=== PATIENT | female | born 1955 | race Caucasian/White ===

== ENCOUNTER 2022-10-14 14:15 | Emergency (ER) | payer MEDICARE, OTHER, SELFPAY ==
--- NOTE | ~2022-10-14 | XR_ITS ---
EXAMINATION: XR CHEST CLINICAL INFORMATION: Chest pain COMPARISON: None available. TECHNIQUE: 2 views of the chest were obtained. FINDINGS: Right basilar opacity may represent atelectasis, infiltrate or possibly a undulating hemidiaphragm. Left lung is grossly clear. The mid-upper lung zones are felt to be grossly clear. The cardiac silhouette is within normal limits. There is no effusion. XR/XR chest 2V IMPRESSION: Right basilar opacity may represent atelectasis or infiltrate
--- NOTE | 2022-10-14 14:18 | ECG_ITS ---
Test Reason : CHEST PRESSURE Blood Pressure : / mmHG Vent. Rate : 084 BPM Atrial Rate : 084 BPM P-R Int : 146 ms QRS Dur : 088 ms QT Int : 382 ms P-R-T Axes : 038 -10 061 degrees QTc Int : 451 ms Normal sinus rhythm Minimal voltage criteria for LVH, may be normal variant ( R in aVL ) Cannot rule out Inferior infarct , age undetermined Cannot rule out Anterior infarct , age undetermined Abnormal ECG No previous ECGs available Referred By: Generic ED Physician Electronically Signed By:LULU WHITAKER
--- NOTE | 2022-10-14 14:37 | ED.CHESTPAIN ---
HPI - Chest Pain General Chief Complaint: Chest Pain Stated Complaint: chest pressure upper back and jaw pain Time Seen by Provider: 10/14/22 17:05 Source: patient Mode of arrival: ambulatory Limitations: no limitations History of Present Illness HPI narrative: Patient obese with history of hypertension and fatty liver no known coronary artery disease was sitting at a computer at 14:00 and notice severe heaviness and pain which lasted for about 15-20 minutes radiating to the jaw and the back patient never had similar pain in the past had a stress test and years ago which was negative patient did not have any shortness of breath or cough or palpitation again patient had 3 more times similar chest pain but less severe no diaphoresis patient does not take any aspirin Related Data Previous Rx's Medication Instructions Recorded aspirin 81 mg chewable tablet 81 mg PO DAILY #90 tabs 10/14/22 Allergies Allergy/AdvReac Type Severity Reaction Status Date / Time No Known Allergies Allergy Verified 10/14/22 14:22 Review of Systems Review of Systems: Yes all other systems are reviewed and are negative [facility] Social History Social History Smoked in Last 30 Days: No Use of substances other than those prescribed or required for medical reasons: No Advance Directives: No Advance Directives Information Provided: Yes Physical Exam Vital Signs: Vital Signs: Last Vital Signs Temp 97.0 F 10/14/22 17:22 Pulse 74 10/14/22 20:29 Resp 18 10/14/22 20:29 BP 124/54 L 10/14/22 20:29 Pulse Ox 93 10/14/22 20:29 O2 Del Method Room Air 10/14/22 20:29 BMI result Body Mass Index 48.7 Appearance: Alert. Oriented X3. No acute distress. Obese Eyes: No pallor or icterus ENT: Pharynx normal. Oral Mucosa moist Neck: Normal inspection. Neck supple. CVS: Normal heart rate and rhythm. Pulses normal. Respiratory: No respiratory distress. Equal air entry bilateral, no wheezing/rales/rhonchi Abdomen: Soft and nontender. Bowel sounds are present, no mass palpable, no CVA tenderness Skin: Skin warm and dry. Normal skin color. Normal skin turgor. Extremities: No lower extremity edema. No calf tenderness Neuro: Oriented X 3. No motor deficit. Course Course Course Narrative: This is an RME: Additional HPI, ROS, PE not included below will be deferred to primary provider. Patient is a 66-year-old female hx HTN, HLD who presents to the emergency department for evaluation of Chest pain, sudden onset whole on the computer approximately 1 hour ago, lasting 10 minutes as severe and then improved, currently is a mild discomfort. described as pressure, substernal radiating to the midline of the back, jaw. Reports history of similar symptoms 10 years ago, thought to be related to stress. Denies history of MT, DVT/PE Plan: Labs, EKG, CXR Medications Administered Discontinued Medications Generic Name Dose Route Start Last Admin Trade Name Freq PRN Reason Stop Dose Admin Aspirin 162 mg 10/14/22 17:42 10/14/22 17:54 Aspirin Enteric Coated 81 Mg Tablet.Dr GALICIA 10/14/22 17:43 162 mg ONCE ONE Administration Medical Decision Making Medical Decision Making [facility] Narrative: Patient with chest pain radiated to the jaw clinically seems like ACS but 2 sets of troponin I negative EKG without any ischemic changes will repeat 1 more time that would be 6 hours of the onset of chest pain patient was given aspirin currently chest pain-free, patient with 3 sets of high sensitive troponin negative no chest pain during stay in the ER will discharge patient home Lab Data [facility] Lab Attestation statement: I reviewed the patient's lab results. 10/14/22 14:34 10/14/22 14:34 Labs: Lab Results 10/14/22 10/14/22 10/14/22 Range/Units 14:34 14:34 14:34 WBC 8.0 (4.8-10.8) X10*3/uL RBC 4.26 (4.20-5.50) X10*6/uL Hgb 12.4 (12.0-16.0) g/dl Hct 38.6 (37.0-47.0) % MCV 90.6 (80.0-98.0) fL MCH 29.1 (27.0-33.0) pg MCHC 32.1 (31.0-35.0) g/dl RDW 13.8 (11.0-16.0) % Plt Count 204 (160-400) X10*3/uL MPV 10.9 (9.4-12.3) fL Immature Gran % (Auto) 0.2 (0.0-0.4) % Neut % (Auto) 70.0 (45-73) % Lymph % (Auto) 23.9 (20-40) % [place] % (Auto) 5.1 (2-11) % Eos % (Auto) 0.6 (0-4) % Baso % (Auto) 0.2 (0-2) % Lymph # (Auto) 1.9 (1.2-4.9) X10*3/uL [place] # (Auto) 0.4 (0.1-1.2) X10*3/uL Eos # (Auto) 0.1 (0.0-0.4) X10*3/uL Baso # (Auto) 0.0 (0.0-0.2) X10*3/uL Abs Immat Gran (auto) 0.02 (0.00-0.03) X10*3/uL Absolute Neuts (auto) 5.6 (2.0-8.3) x10*3/uL Absolute Nucleated RBC 0.000 (0.0-0.012) X10*3/uL Nucleated RBC % (auto) 0.0 (0.0-0.2) /100WBC PT 12.7 (10.0-13.1) SEC INR 1.1 (0.9-1.1) D-Dimer High Sensitivty < 150 NG/ML Sodium 142 (135-145) mmol/L Potassium 3.8 (3.3-5.1) mmol/L Chloride 106 (96-108) mmol/L Carbon Dioxide 25 (22-29) mmol/L Anion Gap 15 (12-20) BUN 25 H (9-16) mg/dL Creatinine 0.98 (0.5-1.4) mg/dL Estim Creat Clear Calc 70.8 Estimated GFR 57 Random Glucose 113 (60-115) mg/dL Calcium 9.8 (8.4-10.2) mg/dL Total Bilirubin 1.0 (0.0-1.0) mg/dL AST 53 H (5-31) U/L ALT 47 H (0-31) U/L Alkaline Phosphatase 99 (39-117) U/L Troponin I High Sens (<3.5-17.0) ng/L B-Natriuretic Peptide (<100) pg/mL Total Protein 7.2 (6.5-8.0) g/dL Albumin 4.2 (3.5-5.0) g/dL 10/14/22 10/14/22 10/14/22 Range/Units 14:34 14:34 18:22 WBC (4.8-10.8) X10*3/uL RBC (4.20-5.50) X10*6/uL Hgb (12.0-16.0) g/dl Hct (37.0-47.0) % MCV (80.0-98.0) fL MCH (27.0-33.0) pg MCHC (31.0-35.0) g/dl RDW (11.0-16.0) % Plt Count (160-400) X10*3/uL MPV (9.4-12.3) fL Immature Gran % (Auto) (0.0-0.4) % Neut % (Auto) (45-73) % Lymph % (Auto) (20-40) % [place] % (Auto) (2-11) % Eos % (Auto) (0-4) % Baso % (Auto) (0-2) % Lymph # (Auto) (1.2-4.9) X10*3/uL [place] # (Auto) (0.1-1.2) X10*3/uL Eos # (Auto) (0.0-0.4) X10*3/uL Baso # (Auto) (0.0-0.2) X10*3/uL Abs Immat Gran (auto) (0.00-0.03) X10*3/uL Absolute Neuts (auto) (2.0-8.3) x10*3/uL Absolute Nucleated RBC (0.0-0.012) X10*3/uL Nucleated RBC % (auto) (0.0-0.2) /100WBC PT (10.0-13.1) SEC INR (0.9-1.1) D-Dimer High Sensitivty NG/ML Sodium (135-145) mmol/L Potassium (3.3-5.1) mmol/L Chloride (96-108) mmol/L Carbon Dioxide (22-29) mmol/L Anion Gap (12-20) BUN (9-16) mg/dL Creatinine (0.5-1.4) mg/dL Estim Creat Clear Calc Estimated GFR Random Glucose (60-115) mg/dL Calcium (8.4-10.2) mg/dL Total Bilirubin (0.0-1.0) mg/dL AST (5-31) U/L ALT (0-31) U/L Alkaline Phosphatase (39-117) U/L Troponin I High Sens < 2.7 < 2.7 (<3.5-17.0) ng/L B-Natriuretic Peptide < 10 (<100) pg/mL Total Protein (6.5-8.0) g/dL Albumin (3.5-5.0) g/dL 10/14/22 Range/Units 20:41 WBC (4.8-10.8) X10*3/uL RBC (4.20-5.50) X10*6/uL Hgb (12.0-16.0) g/dl Hct (37.0-47.0) % MCV (80.0-98.0) fL MCH (27.0-33.0) pg MCHC (31.0-35.0) g/dl RDW (11.0-16.0) % Plt Count (160-400) X10*3/uL MPV (9.4-12.3) fL Immature Gran % (Auto) (0.0-0.4) % Neut % (Auto) (45-73) % Lymph % (Auto) (20-40) % [place] % (Auto) (2-11) % Eos % (Auto) (0-4) % Baso % (Auto) (0-2) % Lymph # (Auto) (1.2-4.9) X10*3/uL [place] # (Auto) (0.1-1.2) X10*3/uL Eos # (Auto) (0.0-0.4) X10*3/uL Baso # (Auto) (0.0-0.2) X10*3/uL Abs Immat Gran (auto) (0.00-0.03) X10*3/uL Absolute Neuts (auto) (2.0-8.3) x10*3/uL Absolute Nucleated RBC (0.0-0.012) X10*3/uL Nucleated RBC % (auto) (0.0-0.2) /100WBC PT (10.0-13.1) SEC INR (0.9-1.1) D-Dimer High Sensitivty NG/ML Sodium (135-145) mmol/L Potassium (3.3-5.1) mmol/L Chloride (96-108) mmol/L Carbon Dioxide (22-29) mmol/L Anion Gap (12-20) BUN (9-16) mg/dL Creatinine (0.5-1.4) mg/dL Estim Creat Clear Calc Estimated GFR Random Glucose (60-115) mg/dL Calcium (8.4-10.2) mg/dL Total Bilirubin (0.0-1.0) mg/dL AST (5-31) U/L ALT (0-31) U/L Alkaline Phosphatase (39-117) U/L Troponin I High Sens < 2.7 (<3.5-17.0) ng/L B-Natriuretic Peptide (<100) pg/mL Total Protein (6.5-8.0) g/dL Albumin (3.5-5.0) g/dL Independent Interpretation I performed an independent interpretation of an: EKG Interpretation: Normal sinus rhythm heart rate 84 beats per minute normal intervals LVH poor progression of R-wave in anterior leads, no acute ST-T changes no acute ischemia Discharge Plan Discharge Clinical Impression: Chest pain Patient Disposition: Home, Self-Care Instructions: Chest Pain (ED) Additional Instructions: Take baby aspirin daily At this time there is no convincing reports for acute heart damage Follow with PCP/cardiology for further management including stress test Report to ER if recurrence of pain Prescriptions: New aspirin 81 mg tablet,chewable 81 mg PO DAILY Qty: 90 0RF Referrals: Jovanny Wills MD [Physician] - 1 week
[2022-10-14 14:38] VITALS: BP 137/79; PULSE 89; RESP 16; TEMP 36.1; O2SAT 95; BMI 48.7
[2022-10-14 14:39] LABS: MANUAL DIFF FLAG NO
[2022-10-14 14:41] LABS: Basophils Percent Auto 0.2 % (0-2); Eosinophils Absolute Auto 0.1 X10*3/uL (0.0-0.4); Eosinophils Percent Auto 0.6 % (0-4); Hematocrit 38.6 % (37.0-47.0); Hemoglobin 12.4 g/dl (12.0-16.0); Imm Gran Abs Auto 0.02 X10*3/uL (0.00-0.03); Imm Gran Pct Auto 0.2 % (0.0-0.4); Lymphocytes Absolute Auto 1.9 X10*3/uL (1.2-4.9); Lymphocytes Percent Auto 23.9 % (20-40); Mean Corpuscular HGB Conc 32.1 g/dl (31.0-35.0); Mean Corpuscular Hemoglobin 29.1 pg (27.0-33.0); Mean Corpuscular Volume 90.6 fL (80.0-98.0); Mean Platelet Volume 10.9 fL (9.4-12.3); Monocytes Absolute Auto 0.4 X10*3/uL (0.1-1.2); Monocytes Percent Auto 5.1 % (2-11); Neutrophils Absolute Auto 5.6 x10*3/uL (2.0-8.3); Platelet Count 204 X10*3/uL (160-400); Red Blood Count 4.26 X10*6/uL (4.20-5.50); Red Cell Distribution Width 13.8 % (11.0-16.0)
[2022-10-14 14:45] LABS: INTERNATIONAL NORM RATIO 1.1 (0.9-1.1); Prothrombin Time 12.7 SEC (10.0-13.1)
[2022-10-14 15:01] LABS: Alanine Aminotransferase 47 U/L (0-31); Albumin Level 4.2 g/dL (3.5-5.0); Alkaline Phosphatase 99 U/L (39-117); Anion Gap 15 (12-20); Aspartate Amino Transferase 53 U/L (5-31); Blood Urea Nitrogen 25 mg/dL (9-16); Calcium 9.8 mg/dL (8.4-10.2); Carbon Dioxide 25 mmol/L (22-29); Chloride 106 mmol/L (96-108); Creatinine Clr Calc Pharmacy 70.8; Estimated Glomerular Filt Rate 57; Glucose Random 113 mg/dL (60-115); Potassium 3.8 mmol/L (3.3-5.1); Sodium 142 mmol/L (135-145); Total Protein 7.2 g/dL (6.5-8.0)
[2022-10-14 15:03] LABS: B Type Natriuretic Peptide < 10 pg/mL (<100)
[2022-10-14 15:13] LABS: Troponin-I High Sensitivity < 2.7 ng/L (<3.5-17.0)
[2022-10-14 17:22] VITALS: BP 134/72; PULSE 79; RESP 13; TEMP 36.1; O2SAT 97
[2022-10-14] MEDS: Aspirin Enteric Coated 81 MG TABLET.DR 162 MG PO (17:54)
[2022-10-14 18:55] LABS: Troponin-I High Sensitivity < 2.7 ng/L (<3.5-17.0)
[2022-10-14 19:34] LABS: D Dimer High Sensitivity < 150 NG/ML
--- NOTE | 2022-10-14 20:06 | ECG_ITS ---
Test Reason : REPEAT EKG Blood Pressure : / mmHG Vent. Rate : 079 BPM Atrial Rate : 079 BPM P-R Int : 154 ms QRS Dur : 086 ms QT Int : 396 ms P-R-T Axes : 030 -07 057 degrees QTc Int : 454 ms Normal sinus rhythm Possible Inferior infarct (cited on or before 14-OCT-2022) Abnormal ECG When compared with ECG of 14-OCT-2022 14:19, No significant change was found Referred By: Daniel Soto Electronically Signed By:LULU WHITAKER
[2022-10-14 20:29] VITALS: BP 124/54; PULSE 74; RESP 18; O2SAT 93
[2022-10-14 21:45] LABS: Troponin-I High Sensitivity < 2.7 ng/L (<3.5-17.0)
== END 2022-10-14 22:04 | disposition home or self-care (01) ==
PROVIDERS: Nurse Practitioner Family; Emergency Provider Internal Medicine; PCP Physician Assistant
DX: R07.9 Chest pain, unspecified (principal); I10 Essential (primary) hypertension; E78.5 Hyperlipidemia, unspecified
CPT/HCPCS: 36415; 71046; 80053; 83880; 84484; 85025; 85379; 85610; 93005; 99284; 99285

== ENCOUNTER 2023-01-05 19:29 | Emergency (ER) | payer MEDICARE, OTHER, SELFPAY ==
--- NOTE | ~2023-01-05 | XR_ITS ---
EXAMINATION: XR HIP, RIGHT WITH AP PELVIS CLINICAL INFORMATION: Right hip pain radiating down the leg. COMPARISON: None available. TECHNIQUE: AP and frog-leg lateral views of the right hip are submitted, together with a frontal view of the pelvis. FINDINGS: There is bony demineralization. There is marked narrowing of the right acetabular joint space, with peripheral osteophyte formation and subchondral sclerosis and cyst formation. The right femoral head is smooth. There is an intact left hip total arthroplasty. No hardware loosening seen. There is no periprosthetic fracture. The bilateral sacroiliac joints are symmetric and well-maintained. The pubic symphysis is intact. No foreign body is seen. XR/XR hip RT w PEL1V IMPRESSION: 1. There is marked osteoarthritic change of the right hip. 2. There is an intact left hip total arthroplasty, without hardware failure, loosening or periprosthetic fracture noted.
[2023-01-05 19:55] VITALS: BP 185/92; PULSE 94; RESP 16; TEMP 37.3; O2SAT 98; BMI 48.8
--- NOTE | 2023-01-05 19:57 | ED_ITS ---
HPI - General Adult General Chief complaint: Extremity Injury, Lower Stated complaint: Hip pain with radiation to feet and back Time Seen by Provider: 01/05/23 23:31 Source: patient and RN notes reviewed History of Present Illness HPI narrative: 67-year-old female with a history of depression, arthritis, presents for evaluation of right hip pain. Patient states she has had chronic pain to her right hip for over 1 year. She acknowledges that she needs to have a hip replacement. She is status post left hip replacement by [facility]. Patient states that she has been doing more activity than normal as she is caring for her sick who has been undergoing cancer treatment and just came home from the hospital. Patient states she has been ambulating more so and has been using a rolling walker with a seat. Patient states she has been standing and walking much more than normal. This has caused increased pain to the right hip. She is also reporting sharp, shooting pain that radiates down her right leg. This has since resolved. She acknowledges that her weight contributes to difficulty with ambulation. Patient states that she took a half of her 's oxycodone, which she thinks was 5 mg at approximately 12:00 p.m. today. The patient states that she took a nap after this and her symptoms have improved significantly. Patient has been able to ambulate and is actually feeling much more comfortable at this time. She denies any trauma. No recent falls. No bowel or bladder incontinence. Related Data Previous Rx's Medication Instructions Recorded aspirin 81 mg chewable tablet 81 mg PO DAILY #90 tabs 10/14/22 dexamethasone 4 mg tablet 4 mg PO BID #10 tabs 01/05/23 methocarbamol 750 mg tablet 750 mg PO TID PRN pain and spasm 01/05/23 #20 tabs Allergies Allergy/AdvReac Type Severity Reaction Status Date / Time No Known Allergies Allergy Verified 10/14/22 14:22 Review of Systems 2 Review of Systems: Constitutional: No Weight loss, No Fever, No Chills, No Night Sweats, No Fatigue, No Malaise Cardiovascular: No Chest Pain, No SOB, No Edema, No Palpitations Respiratory: No Cough, No Sputum, No Dyspnea Gastrointestinal: No Nausea, No Vomiting, No Diarrhea, No Constipation, No Abdominal pain Genitourinary: No irregular bleeding, No Dysuria, No Hematuria, No Flank Pain Musculoskeletal: + joint pain, No Myalgias, No Joint Swelling Skin: No Skin Lesions, No rash Neuro: No Weakness, No Numbness, + Paresthesias, No Loss of Consciousness, No Dizziness, No Headache PMF Past Medical History Attestation statement: The following information was validated with the patient. Source: old records reviewed Social History Social History Advance Directives: No Advance Directives Information Provided: No Physical Exam ED Vital Signs: Vital Signs - 24 hr 01/05/23 19:55 Temperature 99.1 F Pulse Rate 94 Respiratory Rate 16 Blood Pressure 185/92 H Pulse Oximetry 98 Oxygen Delivery Method Room Air BMI result Body Mass Index 48.8 Const General: cooperative Nutritional Appearance: overweight Orientation/consciousness: patient oriented x3 Eyes Pupils: Equal, round and reactive pupils present Resp Effort & Inspection: normal respiratory effort Auscultation: clear to auscultation bilaterally Cardio Rate: regular rate Rhythm: regular rhythm Back/Spine/Pelvis Other: There is no spinous, paraspinous or paravertebral tenderness. There is no lumbar muscle tenderness. Patient has decreased range of motion in her lower extremities, baseline as confirmed by the patient due to body habitus. There is positive right sciatic notch tenderness. No ecchymosis noted. No calf tenderness or pedal edema. DP pulses are +1 equal bilaterally. Dorsiflexion and plantar flexion are intact bilaterally in the lower extremities. Neuro General: patient oriented x3 Cranial nerves: Yes Equal, round and reactive pupils present Course Course Course Narrative: This is a rapid medical exam: Additional HPI, ROS, PE not included below will be deferred to primary provider. Patient is a 67-year-old female presenting to the emergency department with complaint of right hip pain for the past year. States pain woke her from sleep last night. History of left hip replacement. 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 Pain increases with ambulation, going up and down stairs. Difficulty finding position of comfort. States pain was radiating from right groin all the way down her right leg to her foot. Used ice without relief. Took half of 's 10mg oxycodone at noon which relieved pain. Plan: x-ray Medical Decision Making Medical Decision Making MDM Narrative: 67-year-old female with acute on chronic right hip pain likely due to osteoarthritis as well as sciatica at today's visit. No evidence of any trauma. No evidence of infection. X-ray does not reveal any acute fracture. Patient is able to ambulate and bear weight with her walker. Trial of Decadron and Robaxin with 1st dose given now. Patient would like to be discharged home and follow-up with her orthopedist. Prescription monitoring program reviewed, no opiate use. In fact, the patient is declining any narcotic medication. Patient feels comfortable with discharge plan home. No further questions at this time. Differential Diagnosis Differential Diagnoses: The differential diagnosis associated with the presentation includes Radiology Impression Discussion of test interpretation with radiology: I have reviewed the radiologist's reading. Radiologist Impression: BETH Friedman - Chart Viewer ? Chart Viewer Orders Diagnostics Subcategory All Activity ??:?? All Time ??:?? All Subcategories Filter Laboratory Imaging Microbiology Pathology Blood Bank Tests Cardiovascular Other Specialty DATE TYPE STATUS REF RANGE/AUTHOR Hx Today 20:15 Hip/Pelvis X-Ray Signed Seymour Luis 10/14/22 15:26 Chest X-Ray Signed Nader Lares Bernadine ED 67, F?1955 MRN#? [id number] [facility],?Emergency Department??ED Bed 14?-ED14? 5ft 2in 121kg BMI: 48.8kg/m? Extremity Injury, Lower Acc#? [id number] Resus Status Not Ordered No Hx Avail Allergies No Known Allergies Problems No Data to Display Home Meds Not Confirmed Prescription Monitoring Program MEDICATIONS (INSTRUCTIONS) LAST TAKEN Active ??aspirin ??81 mgPODAILY#90 tabs Triage Note Pt presents to triage - pt stated she woke up in pain last night with R hip. Pt c/o R hip pain for 1 year. Pt states she never follow up regarding the pain. Pt states she is unable to weight bear. Shooting pain down her leg. Pt took oxycodone 12pm- helped alleviated the pain ED EMS Hand-Off No Data to Display Orders Sn[facility] XR hip RT w PEL1V Stat Completed My Widget No Data to Display Lab Results Last 24 Hrs Most Recent No Data to Display Diagnostic Imaging Reports Hip/Pelvis X-Ray Signed Today Diagnostic Departmental Reports No Data to Display Vitals - Initial & Most Recent CURRENT Today 19:55 BP 185/92 H Pulse 94 Resp 16 Temp 99.1 F O2 Sat 98 O2 Delivery Room Air Diagnostics Reports Genoveva Friedman??67??F??1955 ? Allergy/Adv: No Known Allergies Close Hip and Pelvis X-Ray (Signed) Seymour Luis - 01/05/23 Chest X-Ray (Signed) Nader Lares - 10/14/22 Launch?Image [address] [address] XRay Report Signed Patient: Genoveva Friedman MR#: [id number] : 1955 Acct:[id number] Age/Sex: 67 / F ADM Date: 01/05/23 Loc: HO.ED Attending Dr: Ordering Physician: Gerri Johnson NP Date of Service: 01/05/23 Procedure(s): XR hip RT w PEL1V Accession Number(s): [id number] cc: Hui James; Gerri Johnson NP~ EXAMINATION: XR HIP, RIGHT WITH AP PELVIS CLINICAL INFORMATION: Right hip pain radiating down the leg. COMPARISON: None available. TECHNIQUE: AP and frog-leg lateral views of the right hip are submitted, together with a frontal view of the pelvis. FINDINGS: There is bony demineralization. There is marked narrowing of the right acetabular joint space, with peripheral osteophyte formation and subchondral sclerosis and cyst formation. The right femoral head is smooth. There is an intact left hip total arthroplasty. No hardware loosening seen. There is no periprosthetic fracture. The bilateral sacroiliac joints are symmetric and well-maintained. The pubic symphysis is intact. No foreign body is seen. XR/XR hip RT w PEL1V IMPRESSION: 1. There is marked osteoarthritic change of the right hip. 2. There is an intact left hip total arthroplasty, without hardware failure, loosening or periprosthetic fracture noted. Dictated By: Seymour Luis MD Signed By: <Electronically signed by Seymour Luis MD in OV> 01/05/232040 DD/ 14 TD/TT: Short Order Fry Cook: [facility] Discharge Plan Discharge Clinical Impression: Sciatica of right side OA (osteoarthritis) of hip Qualifiers: Osteoarthritis type: unspecified Laterality: right Qualified Code(s): M16.11 - Unilateral primary osteoarthritis, right hip Patient Disposition: Home, Self-Care Instructions: Osteoarthritis (ED), Sciatica (ED) Additional Instructions: Rest. Avoid strenuous activity. Weightbear as tolerated. Continue to use your walker. Decadron as directed. This is a steroid that will help with pain and inflammation. Methocarbamol as directed. This will help with the pain and any muscle spasm. It may cause drowsiness. Do not drive or operate heavy machinery while taking this medication or drinking any alcohol. Follow-up with your orthopedist at [facility]. Follow-up with your primary care provider Return to the emergency department if symptoms worsen do not improve or if you have any other concerns. Prescriptions: New dexamethasone 4 mg tablet 4 mg PO BID Qty: 10 0RF methocarbamol 750 mg tablet 750 mg PO TID PRN (Reason: pain and spasm) Qty: 20 0RF No Action aspirin 81 mg tablet,chewable 81 mg PO DAILY Qty: 90 0RF
[2023-01-06] MEDS: dexAMETHasone 4 MG TABLET 8 MG PO (00:01)
[2023-01-06] MEDS: methocarbamoL 750 MG TABLET PO (00:01)
[2023-01-06 00:06] VITALS: BP 170/81; PULSE 88; RESP 19; TEMP 36.7; O2SAT 97
--- NOTE | 2023-01-06 00:06 | MHC.EDTECH ---
RN made aware of elevated BP of 170/81
== END 2023-01-06 00:09 | disposition home or self-care (01) ==
PROVIDERS: Emergency Provider Emergency Medicine Emergency Medical Services; PCP Physician Assistant
DX: M54.31 Sciatica, right side (principal); M16.11 Unilateral primary osteoarthritis, right hip; E66.9 Obesity, unspecified; Z68.42 Body mass index [BMI] 45.0-49.9, adult; Z79.82 Long term (current) use of aspirin; Z79.899 Other long term (current) drug therapy
CPT/HCPCS: 73502; 99282; 99283; J8540

== ENCOUNTER 2024-05-19 12:33 | Emergency (ER) | payer MEDICARE, OTHER, SELFPAY ==
--- NOTE | ~2024-05-19 | XR_ITS ---
EXAMINATION: XR CHEST 2 VIEWS HISTORY: SOB COMPARISON: Comparison is made with the prior examination dated 10/14/2022. FINDINGS: PA and lateral views of the chest are submitted. The lungs are expanded and clear. There is no pleural effusion, pneumothorax, or pulmonary vascular congestion. The heart is enlarged. The bones are intact. XR/XR chest 2V IMPRESSION: Cardiomegaly. The lungs are clear. Electronically signed by: Surinder Robles MD 05/19/2024 02:46 PM EST
[2024-05-19 13:09] VITALS: BP 173/83; PULSE 85; RESP 18; TEMP 37.1; O2SAT 96; BMI 55.3
--- NOTE | 2024-05-19 13:12 | ED.GENADULT ---
HPI - General Adult General Chief complaint: General Medical Stated complaint: legs swollen wheezing diff breathing Time Seen by Provider: 05/19/24 17:50 Source: patient Limitations: no limitations History of Present Illness ED Provider: Joelle Santos PA-C HPI narrative: 68-year-old morbidly obese female with a history of hypertension, COPD, ongoing tobacco use presents with multiple complaints. Patient states she has had ongoing bilateral lower extremity edema for months. Her doctor placed her on a trial of Lasix over the past month, she has not noted any improvement. In addition, the patient states she has had increased shortness of breath and wheezing over the past month. Denies concurrent cough and cold symptoms, fever, unintentional weight gain, chest pain. She denies unilateral calf pain or swelling, no redness of the lower extremities. Related Data Previous Rx's ?Medication ?Instructions ?Recorded aspirin 81 mg chewable tablet 81 mg PO DAILY #90 tabs 10/14/22 dexamethasone 4 mg tablet 4 mg PO BID #10 tabs 01/05/23 methocarbamol 750 mg tablet 750 mg PO TID PRN pain and spasm 01/05/23 #20 tabs Allergies Allergy/AdvReac Type Severity Reaction Status Date / Time No Known Allergies Allergy Verified 05/19/24 13:13 Review of Systems Review of Systems: Yes all other systems are reviewed and are negative Constitutional: Constitutional: Denies fatigue and Denies fever(s) Cardiovascular: Cardiovascular: Denies chest pain, Reports leg edema and Reports dyspnea Respiratory: Respiratory: Denies chest congestion, Denies cough, Reports dyspnea and Reports wheezing Endocrine: Endocrine: Denies fatigue Allergic/Immunologic: Allergic/Immunologic: Reports wheezing PMFSH Past Medical History Attestation statement: The following information was validated with the patient. Social History Social History Smoked in Last 30 Days: Yes Use of substances other than those prescribed or required for medical reasons: No Advance Directives: No Advance Directives Information Provided: No Physical Exam ED Vital Signs: Vital Signs - 24 hr 05/19/24 13:09 05/19/24 17:29 Temperature 98.8 F 97.6 F Pulse Rate 85 88 Respiratory Rate 18 16 Blood Pressure 173/83 H 168/81 H Pulse Oximetry 96 96 Oxygen Delivery Method Room Air Room Air BMI result Body Mass Index 55.3 Const Other: Alert well-appearing Orientation/consciousness: patient oriented x3 Resp Other: Nonlabored respirations, lungs clear to auscultation no wheezing Cardio Other: Normal peripheral perfusion, bilateral pitting edema noted Skin Other: Warm dry no rash Neuro General: patient oriented x3, gait normal, no focal motor deficits and CN's II-XI intact bilaterally Extrem Other: Both lower extremities are equally edematous, there was no overlying erythema, the skin is somewhat thickened and dry, consistent with likely early venous insufficiency Psych Other: Cooperative Course Course Course Narrative: RME performed by Indigo Nunes PA-C. Patient is a 68 year old assigned female at presenting to the emergency department with swelling and shortness of breath. Patient states that she was switched from HCTZ to Lasix and has been having excessive swelling, shortness of breath, and weight gain. Detailed physical exam and review of systems are deferred to the physician assistant primary care. EKG, labs, imaging, and swabs ordered. Patient placed back in the waiting room pending room availability and results. Medical Decision Making Medical Decision Making [facility] Narrative: 68-year-old morbidly obese female with a history of hypertension, COPD, ongoing tobacco use presents with multiple complaints. Patient states she has had ongoing bilateral lower extremity edema for months. Her doctor placed her on a trial of Lasix over the past month, she has not noted any improvement. In addition, the patient states she has had increased shortness of breath and wheezing over the past month. Denies concurrent cough and cold symptoms, fever, unintentional weight gain, chest pain. She denies unilateral calf pain or swelling, no redness of the lower extremities. Problem: Age, obesity, hypertension, COPD History: Per patient I have considered the following differential diagnoses: Viral syndrome, COPD exacerbation, dependent edema, heart failure, liver dysfunction, renal dysfunction, DVT, cellulitis, venous insufficiency/lymphedema Plan: In regard to the patient's ongoing lower extremity swelling, this is chronic. She has evidence of early venous insufficiency. The swelling is equal, I have no suspicion for DVT, this has been going on for months. We will send with the care instructions etc.. In regard to her increasing shortness of breath, she has silver reasons as to why this could be occurring. She is not an active COPD exacerbation. She is also not an active heart failure, she is not overtly hypertensive, she is not hypoxic, her chest x-ray is clear her BNP is 35, trop negative. Thought about underlying renal and liver dysfunction that could be contributing to her edema, however creatinine normal liver function grossly normal. The patient may have progression of her COPD, she still smokes, I will advise her she requires pulmonary function testing. She may be developing new heart failure, again, given she is not in acute exacerbation, she can have further assessment as an outpatient, I explained to her that she will likely require an ECHO. Patient verbalizes understanding is in agreement with the plan. Independently reviewed the following tests: Labs: Leukocytosis, not anemic, no electrolyte abnormality, troponin 2.8, BNP 35, EKG: Normal sinus, rate 86, no ischemic changes no ectopy QTC 437 Chest x-ray:COMPARISON: Comparison is made with the prior examination dated 10/14/2022. FINDINGS: PA and lateral views of the chest are submitted. The lungs are expanded and clear. There is no pleural effusion, pneumothorax, or pulmonary vascular congestion. The heart is enlarged. The bones are intact. XR/XR chest 2V IMPRESSION: Cardiomegaly. The lungs are clear. Electronically signed by: Surinder Robels MD 05/19/2024 02:46 PM [facility] [place] 05/19/24 15:07 05/19/24 15:07 Labs: Lab Results 05/19/24 Range/Units 15:07 WBC 7.9 (4.8-10.8) X10*3/uL RBC 3.94 L (4.20-5.50) X10*6/uL Hgb 11.7 L (12.0-16.0) g/dl Hct 36.2 L (37.0-47.0) % MCV 91.9 (80.0-98.0) fL MCH 29.7 (27.0-33.0) pg MCHC 32.3 (31.0-35.0) g/dl RDW 13.9 (11.0-16.0) % Plt Count 189 (160-400) X10*3/uL MPV 9.9 (9.4-12.3) fL Immature Gran % (Auto) 0.6 H (0.0-0.4) % Neut % (Auto) 73.1 H (45-73) % Lymph % (Auto) 17.5 L (20-40) % Ballard % (Auto) 5.2 (2-11) % Eos % (Auto) 3.2 (0-4) % Baso % (Auto) 0.4 (0-2) % Lymph # (Auto) 1.4 (1.2-4.9) X10*3/uL Ballard # (Auto) 0.4 (0.1-1.2) X10*3/uL Eos # (Auto) 0.3 (0.0-0.4) X10*3/uL Baso # (Auto) 0.0 (0.0-0.2) X10*3/uL Abs Immat Gran (auto) 0.05 H (0.00-0.03) X10*3/uL Absolute Neuts (auto) 5.8 (2.0-8.3) x10*3/uL Absolute Nucleated RBC 0.000 (0.0-0.012) X10*3/uL Nucleated RBC % (auto) 0.0 (0.0-0.2) /100WBC Sodium 142 (135-145) mmol/L Potassium 4.3 (3.3-5.1) mmol/L Chloride 109 H (96-108) mmol/L Carbon Dioxide 24 (22-29) mmol/L Anion Gap 13 (12-20) BUN 23 H (9-16) mg/dL Creatinine 0.94 (0.5-1.4) mg/dL Estim Creat Clear Calc 80.8 Estimated GFR 59 Random Glucose 125 H (60-115) mg/dL Calcium 9.4 (8.4-10.2) mg/dL Magnesium 2.0 (1.6-2.6) mg/dL Total Bilirubin 0.5 (0.0-1.0) mg/dL AST 97 H (5-31) U/L ALT 78 H (0-31) U/L Alkaline Phosphatase 96 (39-117) U/L Troponin I High Sens 2.8 (<3.5-17.0) ng/L B-Natriuretic Peptide 32 (<100) pg/mL Total Protein 7.5 (6.5-8.0) g/dL Albumin 3.7 (3.5-5.0) g/dL Influenza Type A (PCR) NEGATIVE (Negative) Influenza Type B (PCR) NEGATIVE (Negative) RSV RNA Qual (PCR) NEGATIVE (Negative) SARS-CoV-2 RNA (RT-PCR) NEGATIVE (Negative) Discharge Plan Discharge Clinical Impression: Edema, peripheral, Venous (peripheral) insufficiency Patient Disposition: Home, Self-Care Instructions: Leg Edema (ED), Venous Insufficiency (DC) Additional Instructions: All of your screening labs including cardiac related lab studies were obtained, they were normal. Your chest x-ray is clear. There were no concerning changes on your EKG. You have dependent edema, with likely underlying venous insufficiency. See home care instructions. Exercise and weight loss are instrumental in helping to manage this chronic condition. The use of compression stockings are also a necessity. It is ideal that you have an appointment with your primary care provider tomorrow morning. Prescriptions: No Action dexamethasone 4 mg tablet 4 mg PO BID Qty: 10 0RF methocarbamol 750 mg tablet 750 mg PO TID PRN (Reason: pain and spasm) Qty: 20 0RF aspirin 81 mg tablet,chewable 81 mg PO DAILY Qty: 90 0RF Interventions: ED Discharge Assessment Last Done: 05/19/24 18:22 Discharge Date/Time: 05/19/24 18:30 Print Language: Salvadorean
--- NOTE | 2024-05-19 13:13 | ECG_ITS ---
Test Reason : SOB Blood Pressure : */* mmHG Vent. Rate : 86 BPM Atrial Rate : 86 BPM P-R Int : 150 ms QRS Dur : 80 ms QT Int : 366 ms P-R-T Axes : 54 -7 57 degrees QTcB Int : 437 ms Normal sinus rhythm Minimal voltage criteria for LVH, may be normal variant ( R in aVL ) Cannot rule out Anterior infarct , age undetermined Abnormal ECG When compared with ECG of 14-Oct-2022 20:22, No significant changes seen Referred By: Indigo Nunes Electronically Signed By: LULU WHITAKER
[2024-05-19 15:11] LABS: MANUAL DIFF FLAG NO
[2024-05-19 15:13] LABS: Basophils Percent Auto 0.4 % (0-2); Eosinophils Absolute Auto 0.3 X10*3/uL (0.0-0.4); Eosinophils Percent Auto 3.2 % (0-4); Hematocrit 36.2 % (37.0-47.0); Hemoglobin 11.7 g/dl (12.0-16.0); Imm Gran Abs Auto 0.05 X10*3/uL (0.00-0.03); Imm Gran Pct Auto 0.6 % (0.0-0.4); Lymphocytes Absolute Auto 1.4 X10*3/uL (1.2-4.9); Lymphocytes Percent Auto 17.5 % (20-40); Mean Corpuscular HGB Conc 32.3 g/dl (31.0-35.0); Mean Corpuscular Hemoglobin 29.7 pg (27.0-33.0); Mean Corpuscular Volume 91.9 fL (80.0-98.0); Mean Platelet Volume 9.9 fL (9.4-12.3); Monocytes Absolute Auto 0.4 X10*3/uL (0.1-1.2); Monocytes Percent Auto 5.2 % (2-11); Neutrophils Absolute Auto 5.8 x10*3/uL (2.0-8.3); Neutrophils Percent Auto 73.1 % (45-73); Platelet Count 189 X10*3/uL (160-400); Red Blood Count 3.94 X10*6/uL (4.20-5.50); Red Cell Distribution Width 13.9 % (11.0-16.0); White Blood Count 7.9 X10*3/uL (4.8-10.8)
[2024-05-19 15:36] LABS: Alanine Aminotransferase 78 U/L (0-31); Albumin Level 3.7 g/dL (3.5-5.0); Anion Gap 13 (12-20); Aspartate Amino Transferase 97 U/L (5-31); Bilirubin Total 0.5 mg/dL (0.0-1.0); Blood Urea Nitrogen 23 mg/dL (9-16); Calcium 9.4 mg/dL (8.4-10.2); Carbon Dioxide 24 mmol/L (22-29); Chloride 109 mmol/L (96-108); Creatinine Clr Calc Pharmacy 80.8; Estimated Glomerular Filt Rate 59; Glucose Random 125 mg/dL (60-115); Potassium 4.3 mmol/L (3.3-5.1); Sodium 142 mmol/L (135-145); Total Protein 7.5 g/dL (6.5-8.0)
[2024-05-19 15:43] LABS: B Type Natriuretic Peptide 32 pg/mL (<100); Troponin-I High Sensitivity 2.8 ng/L (<3.5-17.0)
[2024-05-19 15:50] LABS: Alkaline Phosphatase 96 U/L (39-117)
[2024-05-19 15:51] LABS: Influenza A PCR NEGATIVE (Negative); Influenza B PCR NEGATIVE (Negative); Resp Syncy Virus RNA Qual PCR NEGATIVE (Negative); SARS COV2 PCR INHOUSE NEGATIVE (Negative)
[2024-05-19 17:29] VITALS: BP 168/81; PULSE 88; RESP 16; TEMP 36.4; O2SAT 96
--- NOTE | 2024-05-19 17:39 | PC.NURSE ---
pt presents to the main ED from triage. labs obtained/ekg completed/chest xray completed and resulted prior to bed assignment. during assessment - a&ox4. vss and up to date. nsr on the radiation monitor. pt presents to the ED c/o increasing bilateral LE edema w/ increased sob. pt reports increased edema x 1 month and increased sob x 2 weeks. pt reports that exertion, position change, and orthopnea are aggravating factors. 3+ pitting edema noted in LE bilat. pt reports recent medication change - pt used to be on 12.5mg HCTZ daily but transitioned to 20mg of lasix BID in early march. pt reports medication compliance. pt displays w/ sob as she was transitioning herself from wheelchair into bed. no sob/wob noted at rest. pt positioned upright to promote patent airway. 96% on RA. pt waiting to be seen by provider. plan of care ongoing. call pham placed within reach.
[2024-05-19 18:22] VITALS: BP 168/81; PULSE 88; RESP 16; TEMP 36.4; O2SAT 96
--- OUTSIDE RECORDS SUMMARY | 2024-05-19 20:08 | XMS_ITS ---
Author Organization [facility] Address [address] [place] [address] Care Team Providers Care Driftman Name Role Phone Yuval Ghosh MD Primary Care Provider Unava ilPankaj Pizarro Unavailable [phone] REASON FOR VISIT Cancel Encounters Encounter Location Date Provider Diagnosis [facility] [address] [place] [address] 05/08/2023 Pankaj Heard Plan Of Treatment No Information Progress Notes * Genoveva FRIEDMAN LDOB:1955 (67 yo F)Acc No.[id number]:05/08/2023 Patient:?Genoveva Friedman :1955???Age:67 Y???Sex:Female Address:[address] [place], [address] * true * Date:? Generated for Printi edwar/Hossein/eTransmitting on:?05/19/2024 08:08 PM EST
--- OUTSIDE RECORDS SUMMARY | 2024-05-19 20:09 | XMS_ITS ---
Author Organization [facility] [place] Address [address] [facility] [place] [address] Care Team Providers Care Beverage Steward Name Role Phone Yuval Ghosh MD Primary Care Provider Pankaj Jarvis Unavailable [phone] Allergies No Known Allergies REASON FOR VISIT Painful nail(s) aggrevated by shoes causing difficulty standing/walking, Skin problem(s), Ingrown Nail Medications Medication SIG (Take, Route, Frequency, Duration) Notes Start Date End Date Status Atorvastatin Calcium 20 MG Orally Active Baby Aspirin Active buPROPion HCl Active Citalopram Hydrobromide 10 MG/5ML 5 ml Orally Once a day for 30 day(s) Active hydroCHLOROthiazide Not-Taking Lisinopril 20 MG Orally Act penelope Pramipexole Dihydrochloride 0.25 MG Orally Active Ammonium Lactate 12 % 1 application Externally Twice a day for 30 days Active Stool Softener Activ e Wellbutrin Active Social History Tobacco Use: Social History Observation Description Date Details (start date - stop date) Former Smoker NA - NA Tobacco Use/Smoking Question Answer Notes Are you a: former smoker Additional Findings: Tobacco Non-User Current no n-smoker Alcohol Screen Question Answer Notes Did you have a drink containing alcohol in the p ast year? Yes Points 0 Interpretation Negative Tobacco use other than smoking: Question Answer Notes Are you an other tobacco user? Yes G UM Vital Signs Height 5 ft 3 in in 02/06/2023 Weight 266 lbs 02/06/2023 BMI 47.11 kg/m2 02/06/2023 Blood pressure systolic 123 mm Hg 02/07/20 23 Blood pressure diastolic 77 mm Hg 023 Procedures Procedure Date Ordered Date Performed Result Body Sit e 24595-MDYAPSX NAIL, 6 OR MORE 02/06/2023 N/A 95192-Trunhxfe Plate 02/06/2023 N/A Encounters Encounter Location Date Provider Diagnosis [facility] [address] [address] [place] [address] 02/06/2023 Pankaj Heard Tinea unguium B35.1 ; Pain in right toe(s) M79.674 ; Pain in left toe(s) M79.675 ; Xerosis of skin L85.3 and Ingrown nail L60.0 Assessments Encounter Date Diagnosis (ICD Code) Assessment Notes Treatment Notes Treatment Clinical Notes Section Notes 02/06/2023 Tinea unguium (ICD-10 - B35.1) 02/06/2023 Pain in right toe(s) (ICD-10 - M79.674) 02/06/2023 Pain in left toe(s) (ICD-10 - M79.675) 02/06/2023 Xerosis of skin (ICD-10 - L85.3) Response to treatment,Unchanged, Nonadherent to recommendations 02/06/2023 Ingrown nail (ICD-10 - L60.0) Plan Of Treatment Pending Test Test Name Order Date [id number] NAIL, 6 OR MORE 02/06/2023 86399-Lclfvfgj Plate 02/06/2023 Next Appt Details Follow Up: prn, Reason: Procedure Notes * Category Sub-Category Detail Notes Nail Avulsion Procedure A fine sterile e levator was placed between the eponychium, nail fold, and nail plate to separate the structures. A sterile nail splitter, and/or sterile 316 blade, was then used to longitudinally section the nail along its entire length through the eponychium to the area under the nail fold. The offending portion of nail was from the nail bed with a rolling action and then removed with a hemostat. No underlying bone was identified. There was minimal bleeding as hemostasis was achieved through the temporary use of either a digital tourniquet or the aforementioned local with epinephrine. A bacitracin sterile dressing was applied. Local wound aftercare instructions were discussed and dispensed. The patient was informed of both conservative and future surgical procedures to prevent recurrence. Tylenol or Motrin was recommended for pain or discomfort (47691) Anesthesia 2cc of 1 percent Lid ocaine Plain local anesthesic utilizing aseptic technique Location Lateral nail border , T5 Debride Nail 6-10 Nail debridement Nail debridem ent performed extensively to reduce/remove overall nail length and girth, subungual debris, and necrotic tissue, by manual and electrical means with use of a nail nipper and/or dremel, to more viable healthy nail plate or bed tissue 6-10. Silver nitrate used for any petechial bleeding as necessary. Patient STILL chooses, no pharmaceutical tx (95496) Progress Notes * Genoveva FRIEDMAN LDOB:1955 (67 yo F)Acc No.[id number]:02/06/2023 Progress Note Patient:?Genoveva Friedman Provider:?Pankaj Heard DPM :1955???Age:67 Y???Sex:Female D ate:02/06/2023 Address:[address] [place] [address] [place] , [place], [place] Pcp:Yuval Ghosh MD Subjective: * Chief Complaints: * ???Painful nail(s) aggrevate d by shoes causing difficulty standing/walkingSkin problem(s)Ingrown Nail * HPI: ???Painful Nails:?Pt States Last PCP Visit:?Date:?10/11/2022 ?Misc:?States next PCP visit - 02/19.?Skin problems:?Location:?B/L .?Course:?unchanged.?Treatments:?medication ( AM Lactin ) , admits nonadherence to recommended application - states inability to reach feet properly, and I tend to take care of myself last - has MM, and oversees 3 grandchildren.? * ROS:?General/Constitutional:?Nausea?denies.?Vomiting?denies.?Hunger Thirst?denies.?Loss appetite?denies.?Chills?denies.?Fatigue?denies.?Fever?denies.?Night Sweats?denies.?Unexplained weight loss?denies.?Unexplained weight gain?denies.?HEENTM:?Dentures?denies.?Dizziness?denies.?Glasses/contacts?denies.?Retinopathy?de nies.?Blurred/double vision?denies.?TMJ?denies.?Discharge/drainage?denies.?Implants?denies.?Sore throat?denies.?Dental implants?denies.?Hard of hearing ?denies.?Difficulty chewing/swallowing/speaking?denies.?Nose bleeds?denies.?Sore mouth?denies.?Respiratory:?On Oxygen?denies.?Pneumonia/pleurisy?denies.?Bronchitis?admits.?Emphysema?denies.?C oughing?denies.?Cough blood?denies.?Shortness of breath?denies.?Wheezing?admits.?Cardiovascular:?Pacemaker?denies.?MVP?denies.?WPW?denies.?CHF?denies.?Heart attack?denies.?Septal defect?denies.?Rapid beat?denies.?Chest pain ?denies.?Atrial Fib.?denies.?Murmur/Palpitations?denies.?Gastrointestinal:?Hemorrhoids?denies.?Stomach/Abdominal pain?denies.?Dark blood stool?denies.?Irritable bowel ?denies.?Constipation?denies.?Diarrhea?denies.?Hematology:?Swelling?denies.?Clots?denies.?Varicose Veins?denies.?Bruising?denies.?Bleeding problem?denies.?Genitourinary:?Blood urine?denies.?Frequent/Painfu/urination/bladder control?denies.?Kidney stones?denies.?Infection (UTI)?denies.?Nephropathy?denies.?sex trans dis (STD)?denies.?Prostate?denies.?Musculoskeletal:?Hammertoes?denies.?Bunions?denies.?Back Pain?admits.?Muscle Cramps/ Resting?denies.?Muscle cramps / walking?denies.?Generalized aches and pains?denies.?Weakness?admits.?Integ.:?Fields?denies.?Scars?admits.?Corns/calluses?denies.?Ingrown nails?admits.?Painful nails?admits.?Open Sores?denies.?Rashes?admits.?Neurologic:?Difficulty sleeping?denies.?Brain disorder?denies.?Numbness?denies.?Balance trouble?denies.?Confusion?denies.?Fainting/blackouts?denies.?Tingling?denies.?Tr emors?denies.? * Medical History:? * Surgical History:?left hip r eplacement 04/29/2019 * Hospitalization/Major Diagno stic Procedure:?Denies Past Hospitalization * Family History:?Mother: carolina e, heart attack, poor circulation.?Father: , foot problems, heart attack, diagnosed with Unspecified essential hypertension.?Paternal Grand Mother: heart attack, diagnosed with Diabetic - NIDDM.?Paternal Grand Father: heart attack.?Maternal Grand Mother: heart attack.?Maternal Grand Father: heart attack.?Siblings: baby sister liver cancer.? * Social History:?Tobacco Use:?Tobacco Use/Smoking?Are you a:?former smoker ?Additional Findings: Tobacco Non-User?Current non-smoker ?Tobacco use other than smoking?Are you an other tobacco user??Yes GUM ???Drugs/Alcohol:?Drugs?Have you used drugs other than those for medical reasons in the past 12 months??No ?Alcohol Screen?Did you have a drink containing alcohol in the past year??Yes ?Points?0 ?Interpretation?Negative ???Miscellaneous:?Caffeine: yes, frequency:, 1-2 cups per day. ?Children: yes, 3. ?no Exercise, hip problems. ?Marital status: , Lives with . 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 * Medications:?TakingAtorvasta tin Calcium 20 MG Tablet Orally Baby Aspirin buPROPion HCl Citalopram Hydrobromide 10 MG/5ML Solution 5 ml Orally Once a dayLisinopril 20 MG Tablet Orally Pramipexole Dihydrochloride 0.25 MG Tablet Orally Stool Softener Wellbutrin Ammonium Lactate 12 % Cream 1 application Externally Twice a dayTaking Atorvastatin Calcium 20 MG Tablet Orally Taking Baby Aspirin Taking buPROPion HCl Taking Citalopram Hydrobromide 10 MG/5ML Solution 5 ml Orally Once a dayTaking Lisinopril 20 MG Tablet Orally Taking Pramipexole Dihydrochloride 0.25 MG Tablet Orally Taking Stool Softener Taking Wellbutrin Taking Ammonium Lactate 12 % Cream 1 application Externally Twice a dayNot-Taking/PRNhydroCHLOROthiazide Medication List reviewed and reconciled with the patientNot-Taking/PRN hydroCHLOROthiazide Medication List reviewed and reconciled with the patient * Allergies:?N.K.D.A.yes[Aller gies Verified] Objective: * Vitals:?Ht:5 ft 3 in, Wt:266 , BMI:47.11, Shoe size: 9.5-10, BP:123/77 mm Hg, Ht- cm: 160.02 cm, Wt-k.66 kg. * Examination: ???Nails: ?NAILS are:?Elongated, overgrown, dystrophic, lytic, greater than 3mm thick, discolored and friable with crumbly malodorous subungual debris, with pain on palpation, 1-5 B/L.?Dermatologic: ?SKIN FINDINGS:?Skin STILL, shows SEVERE sign(s) of, dryness, scaling, in a stocking fashion, no fissure(s) present, B/L.?Ingrown Nail: ?INSPECTION:?Reveals nail incurvation, pain on palpation, groove hypertrophy , Lateral nail border , T5.? Assessment: * Assessment: 1.?Tinea unguium - B35.1 (Pr imary)?2.?Pain in right toe(s) - M79.674?3.?Pain in left toe(s) - M79.675?4.?Xerosis of skin - L85.3, Acute problem, Uncomplicated (3),Rx Management (4), Response to treatment,Unchanged,Nonadherent to recommendations?5.?Ingrown nail - L60.0, Lateral nail border , T5? Plan: * Treatment: 2.?Ingrown nail?Procedure: 00615-Vwnitgwu Plate * Procedures:?Debride Nail 6-10:?Nail debridement?Nail debridement performed extensively to reduce/remove overall nail length and girth, subungual debris, and necrotic tissue, by manual and electrical means with use of a nail nipper and/or dremel, to more viable healthy nail plate or bed tissue 6-10. Silver nitrate used for any petechial bleeding as necessary. Patient STILL chooses, no pharmaceutical tx (51269).?Nail Avulsion:?Location?Lateral nail border?,?T5.?Anesthesia?2cc of 1 percent Lidocaine Plain local anesthesic utilizing aseptic technique.?Procedure?A fine sterile elevator was placed between the eponychium, nail fold, and nail plate to separate the structures. A sterile nail splitter, and/or sterile 316 blade, was then used to longitudinally section the nail along its entire length through the eponychium to the area under the nail fold. The offending portion of nail was from the nail bed with a rolling action and then removed with a hemostat. No underlying bone was identified. There was minimal bleeding as hemostasis was achieved through the temporary use of either a digital tourniquet or the aforementioned local with epinephrine. A bacitracin sterile dressing was applied. Local wound aftercare instructions were discussed and dispensed. The patient was informed of both conservative and future surgical procedures to prevent recurrence. Tylenol or Motrin was recommended for pain or discomfort (98116).? * Procedure Codes:?32174 Avuls ion Plate, Modifiers: XS , [id number] DEBRIDE NAIL, 6 OR MORE, Modifiers: XS * Preventive Medicine:? ??Counseling:?Discussion:?-13: Office or other outpatient visit for the evaluation and management of an established patient, which required a medically appropriate history and/or examination and LOW level of DECISION MAKING for: 1 STABLE ACUTE UNCOMPLICATED PROBLEM, 2 OR MORE MINOR PROBLEMS, OR 1 STABLE CHRONIC PROBLEM, THAT POSE(S) A LOW RISK FOR MORBIDITY/MORTALITY. The visit on the day of the encounter encompassed interpreting the data and educating the patient as to the nature of their condition, treatment options available according to their individual PMH, meds, allergies, and overall health/living conditions, as well as any potential risks or complications that may occur from a failure to adhere to, and participate in, the recommended course of therapy. The discussion included a complete verbal, and/or written explanation of the examination results, any x-rays taken, the proposed diagnosis, and outline of the treatment plan. A schedule for future care needs was also explained. The patient verbalized an understanding of the instructions at this time and agreed to be an active participant in their treatment. If the patient should think of any questions or concerns after the visit, I have encouraged the patient to call the office.?Xerosis:?The patient was counseled on the diagnosis, potential etiologies, and treatment options for their skin condition. We discussed the risks and benefits of each option from performing no treatment, to utilizing OTC topical skin creams/ointments, to utilizing prescription topical creams/ointments, to utilizing customized compounded topical medications and use of nocturnal occlusion with any/all previously detailed therapies. We discussed the advantages and disadvantages of each possible treatment and importance for adherence to all the recommended therapies for optimum success and avoid potential complications such as open sore/infection/possible hospitalization. We discussed the potential effectiveness of each topical preparation as well as each ones possible side effects and/or patient medication interactions. Patient questions re: use, dosage, successful outcomes, and application consistency were reviewed and the patient verbalized that all answers were clearly understood. The patient has decided to HAVE LIVE IN apply Rx skin creams to their feet save the interspaces while paying special attention to the heels.? * Follow Up:?prn * Images: * Sign off status: Completed true * Provider:?Pankaj Heard DPM Date:?2022 Generated for Jerry vann/Hossein/Daniel on:?05/19/2024 08:08 PM EST History and Physical Notes * HPI (History of Present Illness) Category Sub-Category Detail Notes Category Not es Painful Nails Misc: States next PCP visit - Pt States Last PCP Visit: Date:: 10/11/2022 Skin problems Location: B/L Course: unchanged Treatments: medication ( AM Lact in ) , admits nonadherence to recommended application - states inability to reach feet properly, and I tend to take care of myself last - has MM, and oversees 3 grandchildren Examination Category Sub-Category Detail Notes Category Not es Ingrown Nail INSPECTION: Reveals nail inc urvation, pain on palpation, groove hypertrophy , Lateral nail border , T5 Dermatologic SKIN FINDINGS: Skin STILL, show s SEVERE sign(s) of, dryness, scaling, in a stocking fashion, no fissure(s) present, B/L Nails NAILS are: Elongated, overg rown, dystrophic, lytic, greater than 3mm thick, discolored and friable with crumbly malodorous subungual debris, with pain on palpation, 1-5 B/L
--- OUTSIDE RECORDS SUMMARY | 2024-05-19 20:09 | XMS_ITS ---
Author Organization [facility] Address [address] [place] [address] Care Team Providers Care Order Desk Clerk Name Role Phone Yuval Ghosh MD Primary Care Provider Unava Pankaj Coates Unavailable [phone] Encounters Encounter Location Date Provider Diagnosis [facility] [address] [place] [address] 05/08/2023 Pankaj Heard Plan Of Treatment No Information Progress Notes * Genoveva FRIEDMAN LDOB:1955 (68 yo F)Acc No.[id number]:05/08/2023 Progress Note Patient:Genoveva PEREIRA Provider:?Pankaj Heard DPM :1955???Age:67 Y???Sex:Female D ate:05/08/2023 [address] [place] Pcp:Yuval Ghosh MD Subjective: * Chief Complaints: * ??? * Medical History:? Objective: * Vitals:? Assessment: Plan: * Treatment: * Images: * The named appointment provid er may or may not be the originator of this progress note, and it is not deemed complete until electronically signed by the appointment provider. Sign off status: Pending * Provider:?Pankaj Heard DPM Date:?2023 Generated for Jerry vann/Hossein/eTransmitting on:?05/19/2024 08:08 PM EST
--- OUTSIDE RECORDS SUMMARY | 2024-05-19 20:09 | XMS_ITS | Patient Health Record ---
Author Organization [facility] Address [address] [facility] [place] [address] Care Team Providers Care Product Safety Coordinator Name Role Phone Augie CAMACHO, Yuval Primary Care Provider Pankaj Jarvis Unavailable [phone] Allergies No Known Allergies Reason For Referral No Information Medications Medication SIG (Take, Route, Frequency, Duration) Notes Start Date End Date Status Atorvastatin Calcium 20 MG Orally Active Baby Aspirin Active Lisinopril 20 MG Orally Act penelope Pramipexole Dihydrochloride 0.25 MG Orally Active buPROPion HCl Active Citalopram Hydrobromide 10 MG/5ML 5 ml Orally Once a day for 30 day(s) Active Ammonium Lactate 12 % 1 application Externally Twice a day for 30 days Active hydroCHLOROthiazide Not-Taking Stool Softener Activ e Wellbutrin Active Immunizations Vaccine Route Administration Date Status Comme nts COVID-19 Pfizer BioNTech Vaccine Unknown 08/14/2020 Administered 1st 07/22/20 2nd 08/14/20 Social History Tobacco Use: Social History Observation [...] an other tobacco user? Yes G UM Problems Problem Type SNOMED Code ICD Code Onset Dates Problem Status W/U Status Risk Notes Problem Tinea unguium (970990411) Tinea unguium (B35.1) Active confirmed Plan Of Treatment Pending Test Test Name Order Date [id number] NAIL, 6 OR MORE 04/26/2018 [id number] NAIL, 6 OR MORE 07/26/2018 [id number] NAIL, 6 OR MORE 11/08/2018 45901-ZHYUDSA NAIL, 6 OR MORE 01/31/2019 [id number] NAIL, 6 OR MORE 05/23/2019 [id number] NAIL, 6 OR MORE 08/26/2019 [id number] NAIL, 6 OR MORE 01/27/2020 [id number] NAIL, 6 OR MORE 05/04/2020 [id number] NAIL, 6 OR MORE 07/30/2020 95239-SKACEXQ NAIL, 6 OR MORE 2020 [id number] NAIL, 6 OR MORE 01/28/2021 28422-RQYXYBZ NAIL, 6 OR MORE 05/03/2021 51774-SCDHZUD NAIL, 6 OR MORE 08/02/2021 [id number] NAIL, 6 OR MORE 10/31/2022 [id number] NAIL, 6 OR MORE 02/06/2023 88660-Esvjfkeu Plate 02/06/2023 26327-Bvmenczc Plate 09/28/2017 24839-Elpvmaps Plate 01/08/2018 49531-Pabplkmw Plate 04/26/2018 52229-Knpxqzpu Plate Each Additional 07/2018 95738-Xdhlguwu Plate Each Additional Insurance Providers Payer Name Payer Address Payer Phone Subscriber Number Group Number Insured Name Patient Relationship to Insured Coverage Start Date Coverage End Date Medicare [employer] [address] [place] [address] [id number] Genoveva Friedman Self - patient is the insured for Life [address] [place] [address] [id number] Khai Friedman Spouse - patient is the spouse of the insured Medical (General) History Medical History History ICD Code asthma Back,Hip,and Knee pain Broken bones Depression Diverticulosis High blood pressure Psoriasis/eczema Sciatica Psychiatric disorder Thyroid disorder Chicken pox Measles Restless leg syndrome Joint implants/screws CAD Surgical History Surgery Date(Month/Year) left hip replacement 04/29/2019
== END 2024-05-19 18:30 | disposition home or self-care (01) ==
PROVIDERS: Physician Assistant Medical; Emergency Provider Emergency Medicine; PCP Internal Medicine
DX: R60.0 Localized edema (principal); I87.2 Venous insufficiency (chronic) (peripheral); J44.1 Chronic obstructive pulmonary disease with (acute) exacerbation; R06.02 Shortness of breath; R06.00 Dyspnea, unspecified; I10 Essential (primary) hypertension; Z79.82 Long term (current) use of aspirin; Z79.899 Other long term (current) drug therapy; Z03.818 Encounter for observation for suspected exposure to other biological agents ruled out
CPT/HCPCS: 0241U; 71046; 80053; 83735; 83880; 84484; 85025; 93005; 99283; 99284

== ENCOUNTER → 2024-05-19 13:13 | Outpatient (BNV) | payer MEDICARE, OTHER, SELFPAY | PROVIDERS: Visit Provider Radiology Diagnostic Radiology | DX: I51.7 Cardiomegaly (principal) | CPT/HCPCS: 71046 ==

== ENCOUNTER → 2024-05-19 13:13 | Outpatient (BNV) | payer MEDICARE, OTHER, SELFPAY | PROVIDERS: Emergency Provider Emergency Medicine; PCP Internal Medicine; Visit Provider Internal Medicine | DX: R94.31 Abnormal electrocardiogram [ECG] [EKG] (principal) | CPT/HCPCS: 93010 ==

== ENCOUNTER 2025-02-10 09:27 | Outpatient (AMB) | payer MEDICARE, OTHER, SELFPAY ==
--- NOTE | 2025-02-10 09:30 | A.OFFVIS_ITS ---
Vital Signs 02/10/25 09:38 Height 5 ft 3 in Weight 291 lb BMI 51.5 BP 156/78 H Blood Pressure Location Rt brachial Position Sitting Pulse 94 Pulse Source Pulse Oximeter Pulse Oximetry (%) 96 Oxygen Delivery Method Room Air Intake Visit Reasons: colo screen Intake Note: New pt for recall colo screening. Last colo normal per referral (2011). CC: C.O. historical episodes of diarrhea, GI upset, difficulty with greasy / fatty foods. Pt also reports hx of GERD type sx but denies any tx currently or previously. Medical Office Receptionist Required: No Accompanied by: Self / Same As Patient Allergies No Known Allergies Allergy (Verified 05/19/24 13:13) HPI HPI colo screen: Details: 69 year old? female with past medical history of hyperlipidemia, and anxiety, hypertension, bilateral lower extremity edema is here today for pre colonoscopy screening.? Patient was sent to us by her PCP.? Llast colonoscopy in 2011, patient reports she had a normal colonoscopy then. Postprandial diarrhea when eating food from [employer] or other fast food restaurants. Otherwise patient is moving her bowels without any issues. Patient denies any gastrointestinal symptoms in the past or at present.? Denies any personal or family history of gastrointestinal disease, colon polyps, or CRC.? However patient does reports to have occasional reflux when eating greasy food. His Denies history of difficulty with sedation or anesthesia in the past.? Negative for history of sleep apnea.? Denies any history of cardiac, renal, pulmonary, or hepatic disease.?? No history of infectious? diseases like hepatitis A, B, C, HIV or tuberculosis.? Patient is not on any anticoagulation [facility] Medical History (Updated 02/21/25 @ 15:27 by Michelle Tran [facility]) Transaminitis Anxiety HLD (hyperlipidemia) Obesity HTN (hypertension) Surgical History (Updated 02/10/25 @ 09:47 by Diego Foley [facility]) Hx of colonoscopy Review of Systems Const Denies weight gain and Denies weight loss ENT Reports no additional complaints, Denies dysphagia and Denies odynophagia Card Reports no additional complaints Resp Reports no additional complaints GI Reports abdominal pain, Denies belching, Denies melena, Reports bloating, Denies change in bowel habits, Reports constipation, Denies dysphagia, Denies excessive flatus, Denies dyspepsia, Reports heartburn, Denies diarrhea, Reports loose stools, Denies nausea, Denies odynophagia and Denies vomiting Reports no additional complaints Musc Reports no additional complaints Neuro Reports no additional complaints Psych Reports no additional complaints Endo Reports no additional complaints Physical Exam Vital Signs: Last Vital Signs Pulse 94 02/10/25 09:38 BP 156/78 H 02/10/25 09:38 Pulse Ox 96 02/10/25 09:38 Oxygen Delivery Method Room Air 02/10/25 09:38 BMI result Body Mass Index 51.5 Const General: healthy appearing and no acute distress Nutritional Appearance: obese Orientation/consciousness: patient oriented x3 Resp Effort & Inspection: normal respiratory effort, able to speak in complete sentences, no tracheal deviation and symmetric chest movement Auscultation: clear to auscultation bilaterally Cardio Rate: regular rate GI Inspection: Yes normal to inspection, No distended and Yes obesity Palpation (GI): Soft to palpation, not firm, nontender and No hepatosplenomegaly present Auscultation: normal bowel sounds General: Yes no CVA tenderness Back/Spine/Pelvis Back: no CVA tenderness Skin General skin exam: elasticity normal, turgor normal and dry skin Neuro General: patient oriented x3 Psych Appearance: grossly normal Mental Status: mental status grossly normal Assessment & Plan Assessment & Plan (1) Screen for colon cancer: Code(s): Z12.11 - Encounter for screening for malignant neoplasm of colon (2) Transaminitis: Code(s): R74.01 - Elevation of levels of liver transaminase levels Category: Medical (3) Postprandial diarrhea: Code(s): K52.9 - Noninfective gastroenteritis and colitis, unspecified Plan Patient denies any cardiac or respiratory symptoms.? Postprandial diarrhea and epigastric pain when eating fast food. Patient was encouraged to avoid food like that. Transaminitis found will repeat liver panel as well as liver fibrosis. Patient will be sent for ultrasound with elastography. Denies any issues with anesthesia in the past.? Denies any history of sleep apnea.? No hi story infectious diseases in the past or present.? Not on any anticoagulation therapy.? No family or personal history of colon cancer or polyps.? Patient denies melena, hematochezia, unintentional weight loss or ribbon like stools.? Discussed at length the pre-procedure,? prep, diet & medications as well as what to expect prior, during and after the procedure.?? Stressed the importance of good bowel prep.? Recommended the use of Vaseline or Calmoseptine OTC & baby wipes with bowel movements to promote comfort.? ?Patient verbalizes understanding and agrees to plan of care.? She was given the opportunity to ask questions and all questions answered.? We will see her after the procedure.? Orders: Orders Liver Fibrosis Pnl 02/10/25 K76.0 - Fatty (change of) liver, not elsewhere classified Liver Panel 02/10/25 R74.01 - Elevation of levels of liver transaminase levels US abdomen comp w elastography 02/10/25 R79.89 - Other specified abnormal findings of blood chemistry Referrals GI Procedure Notification Z12.11 - Encounter for screening for malignant neoplasm of colon Medications: New bisacodyl (Dulcolax (bisacodyl)) Start taking 2 tablet every night 7 days before the procedure and 1 day before procedure take 4 tablets at noon time followed by MiraLax prep 10 mg (2 x 5 mg) PO BEDTIME 16 tabs 0RF Z12.11 - Encounter for screening for malignant neoplasm of colon polyethylene glycol 3350 (Miralax) As directed by gastro[facility]ology department at [facility] 238 grams PO ONCE 238 grams 0RF Z12.11 - Encounter for screening for malignant neoplasm of colon Coding Level of Care Code New Pt Level 4 (07077) Diagnoses Screen for colon cancer Z12.11 Transaminitis R74.01 Postprandial diarrhea K52.9 Time Spent (min) 45 Comment 35 minutes spent with patient and additional 10 minutes spent reviewing her records
[2025-02-10 09:38] VITALS: BP 156/78; PULSE 94; O2SAT 96; BMI 51.5
--- OUTSIDE RECORDS SUMMARY | 2025-02-10 10:32 | XMS_ITS | Patient Health Record ---
Author Organization [facility] Address [address] [place] [address] Care Team Providers Care Waste Machine Offbearer Name Role Phone Yuval Ghosh MD Primary Care Provider Pankaj Jarvis Unavailable [phone] Allergies No Known Allergies Reason For Referral No Information Medications Medication SIG (Take, Route, Frequency, Duration) Notes Start Date End Date Status Lisinopril 20 MG Orally Act penelope Citalopram Hydrobromide 10 MG/5ML 5 ml Orally Once a day; Duration: 30 day(s) Active buPROPion HCl Active Baby Aspirin Active Atorvastatin Calcium 20 MG Orally Active Lasix Active Ammonium Lactate 12 % 1 application Externally to affected areas of dry skin to feet except for between the toes Twice a day; Duration: 30 days Active hydroCHLOROthiazide Not-Taking Wegovy 0.5 MG/0.5ML 0.5 mL Subcutaneous once a week Active Metoprolol Tartrate 25 MG Oral; Duration : 90 Days Active Wellbutrin Active Stool Softener Activ e Pramipexole Dihydrochloride 0.25 MG Orally Active Immunizations Vaccine Route Administration Date Status Comme nts Influenza Unknown 01/22/2024 Administered COVID-19 Pfizer BioNTech Vaccine Unknown 08/14/2020 Administered 1st 07/22/20 2nd 08/14/20 Social History Tobacco Use: Social History Observation Description Date Details (start date - stop date) Never Smoker NA - NA Tobacco use other than smoking: Question Answer Notes Are you an other tobacco user? Yes G [facility] Tobacco Control (Standard) Question Answer Notes Tobacco use: Nonsmoker Additional Findings: Tobacco non-user Current no nsmoker AUDIT-C (Standard) Question Answer Notes Did you have a drink containing alcohol in the p ast year? No Points 0 Interpretation Negative Problems Problem Type SNOMED Code ICD Code Onset Dates Problem Status W/U Status Risk Notes Problem Tinea unguium (808623209) Tinea unguium (B35.1) Active confirmed Vital Signs Blood pressure diastolic 70 mm Hg 11/14/2024 Height 5 ft 3 in in 11/14/2024 Blood pressure systolic 128 mm Hg 11/14/2024 Weight 300 lbs 11/14/2024 BMI 53.14 kg/m2 11/14/2024 Procedures Procedure Date Ordered Date Performed Result Body Sit e 96167-DOYAKRG NAIL, 6 OR MORE 08/12/2024 N/A 53926-Tfylxkul Plate 08/12/2024 N/A 00026-LHUQTVT NAIL, 6 OR MORE 11/14/2024 N/A Encounters Encounter Location Date Provider Diagnosis [facility] [address] 08/12/2024 Pankaj Sneedunier Tinea unguium B35.1 ; Pain in right toe(s) M79.674 ; Pain in left toe(s) M79.675 ; Ingrown nail L60.0 and Xerosis of skin L85.[address] [address] 11/14/2024 Pankaj Sneedunier Tinea unguium B35.1 ; Pain in right toe(s) M79.674 ; Pain in left toe(s) M79.675 and Xerosis of skin L85.3 Assessments Encounter Date Diagnosis (ICD Code) Assessment Notes Treatment Notes Treatment Clinical Notes Section Notes 08/12/2024 Tinea unguium (ICD-10 - B35.1) 08/12/2024 Pain in right toe(s) (ICD-10 - M79.674) 11/14/2024 Tinea unguium (ICD-10 - B35.1) 11/14/2024 Pain in right toe(s) (ICD-10 - M79.674) 11/14/2024 Pain in left toe(s) (ICD-10 - M79.675) 08/12/2024 Pain in left toe(s) (ICD-10 - M79.675) 08/12/2024 Ingrown nail (ICD-10 - L60.0) 11/14/2024 Xerosis of skin (ICD-10 - L85.3) 08/12/2024 Xerosis of skin (ICD-10 - L85.3) Plan Of Treatment Pending Test Test Name Order Date 37095-ICNBDOW NAIL, 6 OR MORE 04/26/2018 13805-JGPDXNV NAIL, 6 OR MORE 07/26/2018 62715-HTOCXWW NAIL, 6 OR MORE 11/08/2018 14834-RHVAFPS NAIL, 6 OR MORE 01/31/2019 51818-SCVDDYX NAIL, 6 OR MORE 05/23/2019 50905-IHNCOIJ NAIL, 6 OR MORE 08/26/2019 80941-JBSVDCR NAIL, 6 OR MORE 01/27/2020 86095-CXTWKKN NAIL, 6 OR MORE 05/04/2020 56156-ZDXBIYG NAIL, 6 OR MORE 07/30/2020 90529-KBVVHMS NAIL, 6 OR MORE 2020 07652-BRKITZQ NAIL, 6 OR MORE 01/28/2021 99274-ZKNBISS NAIL, 6 OR MORE 05/03/2021 08319-WAUFBTA NAIL, 6 OR MORE 08/02/2021 08780-VMRUOAB NAIL, 6 OR MORE 10/31/2022 28718-QCPNCWI NAIL, 6 OR MORE 02/06/2023 51149-PBJMWZM NAIL, 6 OR MORE 08/12/2024 61971-XPRXLNI NAIL, 6 OR MORE 11/14/2024 40415-Btdgpxwb Plate 04/26/2018 34156-Tcknfcpu Plate 08/12/2024 68481-Qjshalma Plate 09/28/2017 60456-Aivqcttv Plate 01/08/2018 46148-Lyjtlzcx Plate 02/06/2023 33566-Uxxuuuwe Plate Each Additional 07/2018 51426-Mblwzadq Plate Each Additional Next Appt Details Provider Name:Pankaj Heard , 03/03/2025 02:30:00 PM, [address] [place] [address], [address], Insurance Providers Payer Name Payer Address Payer Phone Subscriber Number Group Number Insured Name Patient Relationship to Insured Coverage Start Date Coverage End Date Medicare National Govt Sv[employer] Inc [address] [place] [phone] [id number] Genoveva Friedman Self - patient is the insured for Life [address] [place] [address] [phone] [id number] Khai Friedman Spouse - patient is the spouse of the insured Medical (General) History Medical History History ICD Code asthma Back,Hip,and Knee pain Broken bones Depression Diverticulosis High blood pressure Psoriasis/eczema Sciatica Psychiatric disorder Thyroid disorder Chicken pox Measles Restless leg syndrome Joint implants/screws CAD Surgical History Surgery Date(Month/Year) left hip replacement 04/29/2019
== END 2025-02-10 10:08 | disposition home or self-care (01) ==
LOC: HO.HGI 09:27
PROVIDERS: PCP Internal Medicine; Visit Provider Nurse Practitioner Family
DX: K52.9 Noninfective gastroenteritis and colitis, unspecified (principal); R74.01 Elevation of levels of liver transaminase levels; Z12.11 Encounter for screening for malignant neoplasm of colon
CPT/HCPCS: 99204

== ENCOUNTER 2025-02-10 09:27 | Outpatient (REF) | payer MEDICARE, OTHER, SELFPAY ==
[2025-02-10 11:42] LABS: Alanine Aminotransferase 62 U/L (0-31); Albumin Level 4.1 g/dL (3.5-5.0); Alkaline Phosphatase 110 U/L (39-117); Aspartate Amino Transferase 78 U/L (5-31); Total Protein 7.2 g/dL (6.5-8.0)
[2025-02-17 23:07] LABS: FIB-ALT 45 U/L (6-29); FIB-Alpha-2-Macroglobulin 249 mg/dL (106-279); FIB-Apolipoprotein A1 139 mg/dL (101-198); FIB-GGT 127 U/L (3-65); FIB-Haptoglobin 190 mg/dL (43-212); FIB-Total Bilirubin 0.5 mg/dL (0.2-1.2); Liver Fibrosis Score 0.47; Liver Fibrosis Stage F1-F2; Nec Inflam Act Grade A1; Nec Inflam Act Score 0.31
== END 2025-02-10 09:28 | disposition home or self-care (01) ==
LOC: HO.LAB 09:27
PROVIDERS: PCP Internal Medicine; Visit Provider Nurse Practitioner Family
DX: Z12.11 Encounter for screening for malignant neoplasm of colon (principal); K52.9 Noninfective gastroenteritis and colitis, unspecified; K76.0 Fatty (change of) liver, not elsewhere classified; R74.01 Elevation of levels of liver transaminase levels
CPT/HCPCS: 36415; 80076; 81596; 99202

== ENCOUNTER 2025-04-17 08:58 | Outpatient (REF) | payer MEDICARE, OTHER, SELFPAY ==
--- OUTSIDE RECORDS SUMMARY | 2025-03-03 09:30 | XMS_ITS ---
Author Organization [facility] Address [address] [place] [address] Care Team Providers Care Student Assistance Counselor Name Role Phone Yuval Ghosh MD Primary Care Provider Pankaj Jarvis Unavailable [phone] Medications Medication SIG (Take, Route, Frequency, Duration) Notes Start Date End Date Status Lasix Active Atorvastatin Calcium 20 MG Orally Active Wegovy 0.5 MG/0.5ML 0.5 mL Subcutaneous once a week Active Ammonium Lactate 12 % 1 application Externally to affected areas of dry skin to feet except for between the toes Twice a day; Duration: 30 days Active Baby Aspirin Active Wellbutrin Active Metoprolol Tartrate 25 MG Oral; Duration : 90 Days Active Pramipexole Dihydrochloride 0.25 MG Orally Active Stool Softener Activ e hydroCHLOROthiazide Not-Taking Citalopram Hydrobromide 10 MG/5ML 5 ml Orally Once a day; Duration: 30 day(s) Active Lisinopril 20 MG Orally Act penelope buPROPion HCl Active Encounters Encounter Location Date Provider Diagnosis [facility] [address] [place] [address] 03/03/2025 Pankaj Heard Plan Of Treatment Next Appt Details Provider Name:Pankaj Heard , 06/02/2025 04:00:00 PM, [address] [place], [address], Progress Notes * Genoveva FRIEDMAN LDOB:1955 (69 yo F)Acc No.[id number]:03/03/2025 Progress Note Patient: Genoveva BURDEN Provider: Real Heard DPM :1955 A ge:69 Y S ex:Female Date:03/03/2025 Address:[facility] [address] , [place], [id number] Pcp:Yuval Ghosh MD Subjective: * Chief Complaints: * * Medical History: A sthma, Back,Hip,and Knee pain, Broken bones, Depression, Diverticulosis, High blood pressure, Psoriasis/eczema, Sciatica, Psychiatric disorder, Thyroid disorder, Chicken pox, Measles, Restless leg syndrome, Joint implants/screws, CAD. * Medications: T aking Wegovy 0.5 MG/0.5ML Solution Auto-injector 0.5 mL Subcutaneous once a week , Taking Ammonium Lactate 12 % Cream 1 application Externally to affected areas of dry skin to feet except for between the toes Twice a day , Taking Lasix , Taking Atorvastatin Calcium 20 MG Tablet Orally , Taking Baby Aspirin , Taking buPROPion HCl , Taking Citalopram Hydrobromide 10 MG/5ML Solution 5 ml Orally Once a day , Taking Lisinopril 20 MG Tablet Orally , Taking Pramipexole Dihydrochloride 0.25 MG Tablet Orally , Taking Stool Softener , Taking Wellbutrin , Taking Metoprolol Tartrate 25 MG Tablet Oral , Not-Taking/PRN hydroCHLOROthiazide Objective: * Vitals: Assessment: Plan: * Treatment: * Images: * The named appointment provid er may or may not be the originator of this progress note, and it is not deemed complete until electronically signed by the appointment provider. Sign off status: Pending * Provider: Real Heard DPM Date: 05/03/2024 Generated for Jerry Estes/Daniel on: 06/18/2024 09:01 AM EST
--- NOTE | ~2025-04-17 | US_ITS ---
EXAMINATION: US ABDOMEN COMPLETE WITH LIVER ELASTOGRAPHY HISTORY: R79.89 - Other specified abnormal findings of blood chemistry TECHNIQUE: Real-time grayscale ultrasound imaging of the abdomen was performed and images were reviewed. COMPARISON: There are no prior studies available for comparison. FINDINGS: Liver: The right lobe of the liver measures 18.4 cm in size. The left lobe of the liver measures 14.2 cm in size. The liver demonstrates increased echotexture, consistent with steatosis. No focal mass or intrahepatic biliary ductal dilatation is identified. There is normal hepatopedal flow in the portal vein. Ultrasound elastography of the liver was performed with 10 separate measurements of the liver parenchyma with the patient in the supine position. Measurements were obtained approximately 2 cm below Rusty's capsule and perpendicular to the capsule. The median shear wave velocity is 1.64 m/s. The interquartile range/median (IQR/median) is 0.07. Gallbladder and biliary tree: The gallbladder is unremarkable, without evidence of calculi, wall thickening, or pericholecystic fluid. There is no sonographic Richardson sign. The common bile duct is normal in caliber measuring 2 mm in diameter. Kidneys: The right kidney measures 13.3 cm in length. The left kidney measures 10.7 cm in length. The kidneys are unremarkable, without evidence of masses, hydronephrosis, or calculi. Pancreas: The pancreatic head, neck, and body are unremarkable. The pancreatic tail is obscured by bowel gas. Spleen: The spleen is enlarged, measuring 14.8 cm in length. Abdominal aorta and inferior vena cava: The visualized portions of the abdominal aorta and inferior vena cava are normal in caliber. There is no free fluid in the abdomen. US/US abdomen comp w elastography IMPRESSION: Hepatosplenomegaly and hepatic steatosis. The median shear wave velocity in the liver is 1.64 m/s, corresponding to a median liver stiffness of 8.23 kPa. The IQR/median value is 0.07. This is indicative of a quality data set. Findings are indicative of a low elastography value which rules out advanced chronic liver disease in asymptomatic patients. REFERENCE: Society of Radiologists in Ultrasound Liver Stiffness Thresholds (2020): LIVER STIFFNESS THRESHOLDS: *Shear wave velocity less than 1.3 m/s (Liver Stiffness equal or less than 5 kPa): High probability of being normal. *Shear wave velocity less than 1.7 m/s (Liver Stiffness less than 9 kPa): In the absence of other known clinical signs, rules out compensated advanced chronic liver disease. *Shear wave velocity between 1.7-2.1 m/s (Liver Stiffness 9-13 kPa): Suggestive of compensated advanced chronic liver disease but need further test for confirmation. *Shear wave velocity between 2.1-2.4 m/s (Liver Stiffness 13-17 kPa): Rules in compensated advanced chronic liver disease. *Shear wave velocity greater than 2.4 m/s (Liver Stiffness over 17 kPa): Suggestive of clinically significant portal hypertension. QUALITY OF DATA SET: *IQR/Median value equal or less than 0.15 implies a quality data set. *IQR/Median value over 0.15 implies a poor quality data set. SIGNIFICANT CHANGE FROM PRIOR EXAM: Significant change if liver stiffness measurement is 10% or greater from prior exam. OTHER CONSIDERATIONS: The stage of liver fibrosis may be overestimated in the setting of acute hepatitis, liver inflammation, elevated liver function tests, hepatic vascular congestion, obstructive cholestasis, non-fasting state, and infiltrative diseases such as amyloidosis and lymphoma. In some patients with NAFLD, the liver stiffness thresholds for compensated advanced chronic liver disease may be lower. In causes other than viral hepatitis and NAFLD, liver stiffness thresholds are not well established. Electronically signed by: Surinder Robles MD 04/17/2025 10:44 AM IESHA
--- OUTSIDE RECORDS SUMMARY | 2025-04-17 09:02 | XMS_ITS | Patient Health Record ---
Author Organization [facility] Address [address] [place] [address] Care Team Providers Care Scientific Informatics Leader Name Role Phone Yuval Ghosh MD Primary Care Provider Pankaj Jarvis Unavailable [phone] Allergies No Known Allergies Reason For Referral [...] Twice a day; Duration: 30 days Active Citalopram Hydrobromide 10 MG/5ML 5 ml Orally Once a day; Duration: 30 day(s) Active Lisinopril 20 MG Orally Act penelope Baby Aspirin Active buPROPion HCl Active Wellbutrin Active Metoprolol Tartrate 25 MG Oral; Duration : 90 Days Active Pramipexole Dihydrochloride 0.25 MG Orally Active Stool Softener Activ e hydroCHLOROthiazide Not-Taking Immunizations Vaccine Route Administration Date Status Comme [...] W/U Status Risk Notes Problem Tinea unguium (211676239) Tinea unguium (B35.1) Active confirmed Vital Signs Blood pressure diastolic 70 mm Hg 11/14/2024 Height 5 ft 3 in in 11/14/2024 Blood pressure systolic 128 mm Hg 11/14/2024 Weight 300 lbs 11/14/2024 BMI 53.14 kg/m2 11/14/2024 Procedures Procedure Date Ordered Date Performed Result Body Sit e 14343-ABNIBUF NAIL, 6 OR MORE 08/12/2024 N/A 04540-Vhvaywsi Plate 08/12/2024 N/A 67679-FAJGWDQ NAIL, 6 OR MORE 11/14/2024 N/A Encounters Encounter Location Date Provider Diagnosis [address] [address] 08/12/2024 Pankaj Heard Tinea unguium B35.1 ; Pain in right toe(s) M79.674 ; Pain in left toe(s) M79.675 ; Ingrown nail L60.0 and Xerosis of skin L85.[address] [address] 11/14/2024 Pankaj Heard Tinea unguium B35.1 ; Pain in right toe(s) M79.674 ; Pain in left toe(s) M79.675 and Xerosis of skin L85.[address] [address] 03/02/2025 Pankaj Heard Assessments Encounter Date Diagnosis (ICD Code) Assessment [...] Treatment Pending Test Test Name Order Date [id number] NAIL, 6 OR MORE 04/26/2018 38428-BYXZLEN NAIL, 6 OR MORE 07/26/2018 03006-HSOCYWG NAIL, 6 OR MORE 11/08/2018 42862-FDTUJBU NAIL, 6 OR MORE 01/31/2019 41250-BIMZIMC NAIL, 6 OR MORE 05/23/2019 07042-PQQJBWD NAIL, 6 OR MORE 08/26/2019 80674-ICHFBAC NAIL, 6 OR MORE 01/27/2020 34549-BLZCXFU NAIL, 6 OR MORE 05/04/2020 82875-TEQMEZY NAIL, 6 OR MORE 07/30/2020 87695-HIKBGPH NAIL, 6 OR MORE 2020 56372-CHIUCAK NAIL, 6 OR MORE 01/28/2021 44037-IWZWAGO NAIL, 6 OR MORE 05/03/2021 41692-IHLHKHZ NAIL, 6 OR MORE 08/02/2021 71413-HBMTKHB NAIL, 6 OR MORE 10/31/2022 96964-JLXUDBP NAIL, 6 OR MORE 02/06/2023 80926-VWKOBRQ NAIL, 6 OR MORE 08/12/2024 71882-MOQRRBS NAIL, 6 OR MORE 11/14/2024 74781-Mlszumpz Plate 04/26/2018 87822-Wkumuoyl Plate 08/12/2024 33951-Idelyurr Plate 09/28/2017 40474-Ekxhrwcu Plate 01/08/2018 45243-Xfflswiv Plate 02/06/2023 41751-Inakuugj Plate Each Additional 07/2018 06279-Dcywpeld Plate Each Additional Next Appt Details Provider Name:Pankaj Heard , 06/02/2025 04:00:00 PM, [address] [place], [address], Insurance Providers Payer Name Payer Address Payer Phone Subscriber Number Group Number Insured Name Patient Relationship to Insured Coverage Start Date Coverage End Date Medicare National Govt Svcs Inc [address] [place] [phone] [id number] Genoveva Friedman Self - patient is the insured for Life [address] [place] [phone] [id number] Khai Friedman Spouse - patient is the spouse of the insured Medical (General) History Medical History History ICD Code asthma Back,Hip,and Knee pain Broken bones Depression Diverticulosis High blood pressure Psoriasis/eczema Sciatica Psychiatric disorder Thyroid disorder Chicken pox Measles Restless leg syndrome Joint implants/screws CAD Surgical History Surgery Date(Month/Year) left hip replacement 04/29/2019
== END 2025-04-17 08:59 | disposition home or self-care (01) ==
LOC: HO.US 08:58
PROVIDERS: PCP Internal Medicine; Visit Provider Nurse Practitioner Family
DX: R79.89 Other specified abnormal findings of blood chemistry (principal)
CPT/HCPCS: 76700; 76981

== ENCOUNTER → 2025-04-17 09:01 | Outpatient (BNV) | payer MEDICARE, OTHER, SELFPAY | PROVIDERS: PCP Internal Medicine; Visit Provider Radiology Diagnostic Radiology | DX: R16.2 Hepatomegaly with splenomegaly, not elsewhere classified (principal); K76.0 Fatty (change of) liver, not elsewhere classified | CPT/HCPCS: 76700 ==